=== PATIENT | male | born 1975 | race Caucasian/White ===

== ENCOUNTER 2022-03-17 11:26 | Inpatient (IN) | payer OTHER ==
[~2022-03-17] VITALS: Ht 175.3 cm; Wt 61.2 kg
[2022-03-17 11:32] VITALS: BP 98/72
--- NOTE | 2022-03-17 11:47 | NUR ---
glucose too high to be read on glucometer at this time, made aware
--- NOTE | 2022-03-17 12:24 | NUR ---
Patient noted to have existing wounds upon arrival to ER. Photos taken of wound and placed in chart. Wound covered with dressing. Physician informed.
[2022-03-17] MEDS ORDERED: NACL 0.9% 1,000 ML IV ONE ×2 (12:30→13:50)
--- NOTE | 2022-03-17 13:00 | NUR ---
46YO MALE PT BIB MOM DUE TO FOOT DISCOMFORT. PT STATES FAMILY ADVICED HIM TO BE SEEN DUE TO WOUND IN R FOOT. PRESENTS WITH TUNNELING WOUND AT HEEL AND OUTER PART OF FOOT. PT STATES WOUND INITIALLY STARTED 2 YEARS AGO DUE TO SURGEY ON PINKY TOE AND HAS INCREASED IN SIZE SINCE . PT DENIES TREATMENT AND SELF CLEANS USING ANTIBIOTIC SOAP AT HOME. PT LEFT FOOT AMPUTATED BELOW KNEE AND STATES AMBULATING USING WHEELCHAIR. PT DENIES PAIN AT SITE. DENIES N/V/D OR CHEST PAIN AT THIS TIME. PT AAOX4, RESPIRATIONS EVEN AND UNLABORED. HX: DIABETES NKA MEDS:DENIES
[2022-03-17 13:09] LABS: HEMATOCRIT 32.7 % (36-52); HEMOGLOBIN 10.9 g/dL (12.0-18.0); MEAN CORPUSCULAR HEMOGLOBIN 27 pg (27-31); MEAN CORPUSCULAR HGB CONC 33 g/dL (33-37); MEAN CORPUSCULAR VOLUME 81.2 fL (80-94); PLATELET COUNT (AUTO) 372 K/uL (140-450); RED BLOOD CELL COUNT(AUTO) 4.03 MIL/uL (4.20-6.10); RED CELL DISTRIBUTION WIDTH 14.7 % (11.6-13.7)
[2022-03-17 13:16] LABS: PROTHROMBIN TIME 11.3 secs (10.8-13.4)
[2022-03-17] MEDS ORDERED: PIPERACILLIN/TAZOBACTAM 3.375 GM in DEXTROSE 5% 50 ML IV ONE (13:50)
[2022-03-17] MEDS ORDERED: VANCOMYCIN 1,000 MG in DEXTROSE 5% 250 ML IV ONE (13:50)
[2022-03-17 13:53] LABS: ALBUMIN 1.6 g/dL (3.4-5.0); ANION GAP 14.8 (8-16); ASPARTATE AMINOTRANSFERASE 11 U/L (15-37); CARBON DIOXIDE 27.4 mmol/L (21-32); CHLORIDE 84 mmol/L (98-107); CREATININE 1.4 mg/dL (0.6-1.3); GFR ARICAN-AMERICAN 71 mL/min (>90); SODIUM SERUM 120 mmol/L (136-145); TOTAL BILIRUBIN 0.3 mg/dL (0.0-1.0); UREA NITROGEN, BLOOD 23 mg/dL (7-18)
[2022-03-17 13:54] LABS: POTASSIUM 6.2 mmol/L (3.5-5.1)
[2022-03-17 13:55] LABS: GLUCOSE 564 mg/dL (74-106)
[2022-03-17] MEDS ORDERED: CALCIUM GLUC 1 GM/50 mL NS BAG 50 ML IV ONE (14:00)
[2022-03-17] MEDS ORDERED: FUROSEMIDE 40 MG/4 ML VIAL IVP ONE (14:00)
[2022-03-17] MEDS ORDERED: INSULIN REGULAR, HUMAN 100 UNIT/ML VIAL IV ONE (14:05)
[2022-03-17 14:33] LABS: LYMPHOCYTES % (MANUAL) 2 % (20-46); MONOCYTES % (MANUAL) 4 % (5-12)
[2022-03-17] MEDS ORDERED: PIPERACILLIN/TAZOBACTAM 3.375 GM VIAL IV ONE (14:37)
[2022-03-17] MEDS ORDERED: VANCOMYCIN 1,000 MG VIAL ONE (14:37)
[2022-03-17 14:58] LABS: APPEARANCE,URINE CLEAR (CLEAR); BILIRUBIN,URINE NEGATIVE (NEGATIVE); BLOOD, URINE 1+ (NEGATIVE); COLOR,URINE YELLOW (YELLOW); LEUKOCYTE ESTERASE ,URINE NEGATIVE (NEGATIVE); NITRITE, URINE NEGATIVE (NEGATIVE); UGLUCOSE 3+ (NEGATIVE)
[2022-03-17 15:19] LABS: RBC,URINE 0-5 /HPF (0-5); WBC,URINE 0-5 /HPF (0-5); YEAST,URINE Rare /HPF (None Seen)
--- NOTE | 2022-03-17 15:44 | NUR ---
PT AT REST AND SLEEPING Addendum: 03/17/22 at 1544 by PHSEP NO VISIBLE DISTRESS. RESPIRATIONS EVEN AND UNLABORED
--- NOTE | 2022-03-17 16:35 | NUR ---
ATTEMPT TO CALL DR FUNEZ FOR PT UPDATE. LEFT MESSAGE W/ OPTHALMIC TECH
--- NOTE | 2022-03-17 17:30 | NUR ---
MD FUNEZ UPDATED AND MADE AWARE PT STATUS. TO CHANGE ORDERS
[2022-03-17] MEDS ORDERED: HYDROcodone/APAP 5/325 MG 1 TAB TAB PO PRN (18:00)
[2022-03-17] MEDS ORDERED: POTASSIUM CHLORIDE 10 MEQ TABER PO PRN (18:00)
[2022-03-17] MEDS ORDERED: KCL 20 MEQ/WATER INJ PREMIX 200 ML IV PRN (18:00)
[2022-03-17] MEDS ORDERED: ONDANSETRON 4 MG/2 ML VIAL IVP PRN (18:00)
[2022-03-17] MEDS ORDERED: MAG SULF 2000 MG/WATER PREMIX 50 ML IV PRN (18:00)
[2022-03-17] MEDS ORDERED: ACETAMINOPHEN 325 MG TAB PO PRN (18:00)
[2022-03-17] MEDS ORDERED: INSULIN LISPRO 100 UNITS/ML VIAL SUBQ SCH (18:14)
--- NOTE | 2022-03-17 19:28 | NUR ---
REPORT GIVEN TO VILMA DUNBAR. ALL QUESTIONS ANSWERED . TRANSFER OF CARE AT THIS TIME
--- NOTE | 2022-03-17 19:34 | NUR ---
PATIENT RESTING IN BED. DOESNT APPEAR TO BE IN DISTRESS. RR APPEAR TO BE EVEN AND UNLABORED. ALL NEEDS MET
[2022-03-17] MEDS: NACL 0.9% 1,000 ML IV SCH (19:40)
--- NOTE | 2022-03-17 22:14 | NUR ---
PATIETN BANDAGES CAME OFF. PUT ON NEW NON ADHESIVE DRESSING . ELEVATED LEG UP ON PILLOW FOR COMFORT. ALL NEEDS MET
--- NOTE | 2022-03-17 22:44 | NUR ---
WOUND CULTURE COLLECTED AND HANDED TO LAB
--- NOTE | 2022-03-17 23:40 | NUR ---
PATIENT STATED THAT HE IS FEEING REALLY ANXIOUS TO GET ADMITTED. PATIENT IS CURRENTLY TACHYCARDIC 115-130. ATIVAN GIVEN ORDERED FOR ANXIETY.
[2022-03-17] MEDS: LORazepam 1 MG TAB PO PRN (23:42)
--- NOTE | 2022-03-18 00:30 | NUR ---
SPOKE TO JEANNE [phone], STATED THAT SHE WOULD PAGE MD RAFA THE DONOR RELATIONS OFFICER MD, HE WOULD CALL BACK REGARDING PATIENT.
--- NOTE | 2022-03-18 00:40 | NUR ---
SPOKE TO MD CRAIG REGARDING PATIENT BEING TACHYCARDIC 120-140. STATED TO GIVE A 500ML/HR BOLUS THEN REASSESS. IF IN AN HOUR PATIENT CONT. TO BE TACHYCARDIC IN THE 120-130S THEN TO CALL BACK AND UPDATE TO RE-EVALUATE TX. ORDERS CARRIED OUT
--- NOTE | 2022-03-18 01:50 | NUR ---
PATIENT RESTING IN BED. HEART RATE <120, PER MD CRAIG. NO NEW ORDERS IF HR IS MAINTAINED UNDER 120. ONLY TO CALL IF 120-130 OR ABOVE. DOESNT APPEAR TO BE IN DISTRESS. RR APPEAR TO BE EVEN AND UNLABORED. BED LOW AND LOCKED. ALL NEEDS MET.
--- NOTE | 2022-03-18 04:00 | NUR ---
PATIETN RESTING IN BED. RR EVEN AND UNLABORED. PATIENT STATED THAT HE IS BEGGING TO FEEL ANXIOUS AGAIN. WILL LET ME KNOW WHEN HE FEELS LIKE HE NEEDS ATIVAN. ALL NEED MET.
--- NOTE | 2022-03-18 07:05 | NUR ---
PATIENT SITTING IN BED. BED LOW AND LOCKED. ALL NEEDS MET.
--- NOTE | 2022-03-18 07:30 | NUR ---
REPORT GIVEN TO KIMMY DUMONT. TRANSFER OF CARE
--- NOTE | 2022-03-18 07:36 | NUR ---
PATIENT BS TAKEN 259. CAPRI REPORTED THAT HE WANTED HIS MEDICATION PRIOR TO RECEIVING BREAKFAST. MORNING NURSE MADE AWARE
[2022-03-18 07:42] LABS: BASOPHILS # (AUTO) 0.1 K/uL (0.00-0.22); BASOPHILS % (AUTO) 0.7 % (0.0-2.0); EOSINOPHILS % (AUTO) 0.3 % (0.0-4.0); HEMATOCRIT 28.5 % (36-52); HEMOGLOBIN 9.6 g/dL (12.0-18.0); LYMPHOCYTES # (AUTO) 1.7 K/uL (2.0-11.5); LYMPHOCYTES % (AUTO) 13.6 % (20.5-51.1); MEAN CORPUSCULAR HEMOGLOBIN 27 pg (27-31); MEAN CORPUSCULAR HGB CONC 34 g/dL (33-37); MEAN CORPUSCULAR VOLUME 79.2 fL (80-94); MONOCYTES # (AUTO) 1.6 K/uL (0.8-1.0); MONOCYTES % (AUTO) 12.8 % (1.7-9.3); NEUTROPHILS # (AUTO) 9.1 K/uL (1.8-7.7); NEUTROPHILS % (AUTO) 72.6 % (42.2-75.2); PLATELET COUNT (AUTO) 320 K/uL (140-450); RED CELL DISTRIBUTION WIDTH 14.8 % (11.6-13.7); WHITE BLOOD COUNT (AUTO) 12.5 K/uL (4.8-10.8)
[2022-03-18 07:49] LABS: ANION GAP 9.3 (8-16); CARBON DIOXIDE 26.6 mmol/L (21-32); CREATININE 0.8 mg/dL (0.6-1.3); POTASSIUM 3.9 mmol/L (3.5-5.1)
[2022-03-18] MEDS: NACL 0.9% 1,000 ML IV SCH ×2 (08:14→19:05)
--- NOTE | 2022-03-18 08:21 | NUR ---
pt calm and resting. provided with meal. tolerated well. vss. iv line patent and intact
[2022-03-18] MEDS: DOCUSATE SODIUM 100 MG GELCAP PO SCH (08:28)
[2022-03-18] MEDS ORDERED: VANCOMYCIN PER PHARMACY MC PRN (09:25)
--- NOTE | 2022-03-18 09:38 | NUR ---
Patient will be admitted to care of dr song. Admited to tele. Will go to [email or web address]. Belongings list completed. Report to rosa maria coy.
[2022-03-18] MEDS: VANCOMYCIN 750 MG in NACL 0.9% 250 ML IV SCH ×2 (10:00→22:01)
[2022-03-18] MEDS: INSULIN LISPRO SLIDING SCALE 100 UNITS/ML VIAL SUBQ PRN ×3 (12:00→20:20)
--- NOTE | 2022-03-18 12:39 | NUR ---
DC PLANNIN YRS OLD MALE PATIENT WAS ADMITTED FROM HOME WITH A DX OF SEPSIS AND RIGHT FOOT OSTEOMYELITIS. PATIENT HAS A HX OF DM, S/P RIGHT FIFTH TOE AMPUTATION AND LEFT BKA. XRAY OF FIGHT FOOT SHOWED ADVANCED OSTEOMYELITIS. CXR AND RAPID COVID TEST NEGATIVE. BLOOD,URINE AND WOUND CULTURE PENDING. WBC ON ADMISSION 17.2 ADMINISTERED VANCOMYCIN AND ZOSYN IV ABX WBC 12.5 CONSULTED WITH SURGEON, ID AND NEPHRO. DC PLAN PER MD'S RECOMMENDATIONS. CM TO FOLLOW Addendum: 03/23/22 at 1518 by Temitope Funes RN DC PLANNING: PATIENT HAS RIGHT BKA ON 03/[address] MCDONALD. CONTINUED IV ABX AMPICILLIN AND IVF , PAIN MEDS WITH MORPHINE IV. DC PLAN TO GO TO SNF FOR PHYSICAL THERAPY. FAXED TO [facility], [facility] AND [facility]ARA [facility]LO[facility]. CM TO FOLLOW Addendum: 03/23/22 at 1526 by Temitope Funes RN DC PLANNING: RECEIVED A CALL FROM [facility] AND [facility] STATED UNABLE TO TAKE PATIENT. NO BED AVAILABLE. AWAITING FOR DAI KILPATRICKJoaquín AND LARA ARREOLA. CM TO FOLLOW Addendum: 03/23/22 at 1613 by Temitope Funes RN DC PLANNING: [facility] ACCEPTED PATIENT.RECEIVED AUTH FRO [facility] CM BERNARDINO GREGORIO FOR [facility] [id number] FOR TRANSPORT [id number] PATIENT CAN GO TO ROOM 223B. AWAITING FOR DC ORDER. CM TO FOLLOW Addendum: 03/24/22 at 1533 by Temitope Funes RN DC PLANNING: PER KALA LEAD ACCOUNTANT PT REQUESTED TO GO HOME AND DC HOME. CALLED PT'S HOUSE [phone] LEFT A MESSAGE. NOTIFIED [facility] REQUEST SENT TO [facility]. CM TO FOLLOW
[2022-03-18] MEDS: PIPERACILLIN/TAZOBACTAM 3.375 GM in DEXTROSE 5% 50 ML IV SCH ×2 (12:49→12:58)
[2022-03-18 13:00] VITALS: BP 157/97
--- NOTE | 2022-03-18 15:35 | NUR ---
PATIENT HAS BEEN SCREENED AND CATEGORIZED HIGH NUTRITION RISK. PATIENT WILL BE SEEN WITHIN 1-2 DAYS OF ADMISSION. / CONSULT AND REFERRAL RECEIVED FOR UNHEALED WOUNDS ANA MARÍA MEI RD
[2022-03-18 16:00] VITALS: BP 152/85
--- NOTE | 2022-03-18 19:30 | NUR ---
RECEIVED BEDSIDE REPORT FROM DAY RN. PT OBSERVED RESTING IN BED WITH EYES CLOSED. RESPIRATIONS ARE EQUAL AND UNLABORED ON ROOM AIR. SKIN IS WARM DRY. L BKA. R FOOT OSTEO FOOT IS WRAPPED DRESSING IS C/D/I. CAP REFILL >3. PT ABLE TO WIGGLE TOES. IV ON RAC 18G INFUSING NS AT 80ML/H. CALL LIGHT IS WITHIN REACH. WILL CONTINUE TO MONITOR.
[2022-03-18 20:00] VITALS: BP 133/87
--- NOTE | 2022-03-18 20:19 | NUR ---
DIDI MEDICATIONS GIVEN PER ORDERS. PHONE GIVEN PER REQUEST. BS 210 INSULIN GIVEN ACCORDING TO SLIDING SCALE. ALL NEEDS MET.
[2022-03-18] MEDS: LORazepam 1 MG TAB PO PRN (22:00)
--- NOTE | 2022-03-18 22:05 | NUR ---
PRN ATIVAN GIVEN FOR C/C ANXIETY. VANCO NOW INFUSING PER ORDERS. WILL CONTINUE TO MONITOR.
[2022-03-18] MEDS ORDERED: DEXTROSE 50% 50 ML SYR IVP PRN (23:40)
[2022-03-19] MEDS: PIPERACILLIN/TAZOBACTAM 3.375 GM in DEXTROSE 5% 50 ML IV SCH ×5 (00:03→23:05)
--- NOTE | 2022-03-19 00:08 | NUR ---
ROUNDS MADE. PT APPEARS TO BE ASLEEP WITH EYES CLOSED. CHEST RISE AND FALL NOTED. WILL CONTINUE TO MONITOR.
--- NOTE | 2022-03-19 02:02 | NUR ---
ROUNDS MADE. PT APPEARS TO BE ASLEEP WITH EYES CLOSED. CHEST RISE AND FALL NOTED. WILL CONTINUE TO MONITOR.
[2022-03-19 04:00] VITALS: BP 130/80
--- NOTE | 2022-03-19 04:00 | NUR ---
VITAL SIGNS ARE STABLE. ALL NEEDS MET.
[2022-03-19 05:58] LABS: BASOPHILS # (AUTO) 0.1 K/uL (0.00-0.22); BASOPHILS % (AUTO) 0.8 % (0.0-2.0); EOSINOPHILS # (AUTO) 0.2 K/uL (0-0.4); HEMATOCRIT 28.2 % (36-52); HEMOGLOBIN 9.5 g/dL (12.0-18.0); LYMPHOCYTES # (AUTO) 2.4 K/uL (2.0-11.5); LYMPHOCYTES % (AUTO) 21.6 % (20.5-51.1); MEAN CORPUSCULAR HEMOGLOBIN 27 pg (27-31); MEAN CORPUSCULAR HGB CONC 34 g/dL (33-37); MEAN CORPUSCULAR VOLUME 80.1 fL (80-94); MONOCYTES # (AUTO) 1.3 K/uL (0.8-1.0); MONOCYTES % (AUTO) 11.9 % (1.7-9.3); NEUTROPHILS % (AUTO) 63.7 % (42.2-75.2); PLATELET COUNT (AUTO) 358 K/uL (140-450); RED BLOOD CELL COUNT(AUTO) 3.52 MIL/uL (4.20-6.10); RED CELL DISTRIBUTION WIDTH 14.7 % (11.6-13.7)
[2022-03-19 06:35] LABS: ANION GAP 9.4 (8-16); CARBON DIOXIDE 29.8 mmol/L (21-32); CREATININE 0.9 mg/dL (0.6-1.3); POTASSIUM 4.2 mmol/L (3.5-5.1)
[2022-03-19] MEDS: BLOOD GLUCOSE MONITORING 1 DEV DEV FS SCH ×4 (06:49→20:28)
[2022-03-19] MEDS: NACL 0.9% 1,000 ML IV SCH ×2 (06:49→20:36)
[2022-03-19] MEDS: MAGNESIUM OXIDE 400 MG TAB PO PRN (06:50)
--- NOTE | 2022-03-19 06:50 | NUR ---
BS 388 PT ATE BURGER LAST NIGHT DESPITE ADVISED NOT TOO. PT NPO AFTER MIDNIGHT POSSIBLE SX TODAY. SX IS NOT YET DIDI. WILL HOLD COVERAGE. PRN MG OX 400MG GIVEN MG LVL 1.7 THIS MORNING.
--- NOTE | 2022-03-19 07:30 | NUR ---
BEDSIDE REPORT GIVEN TO DAY RN. PT IN STABLE CONDITION.
[2022-03-19 08:00] VITALS: BP 156/99
[2022-03-19] MEDS ORDERED: VANCOMYCIN 1,000 MG in DEXTROSE 5% 250 ML IV SCH (10:00)
[2022-03-19] MEDS: DOCUSATE SODIUM 100 MG GELCAP PO SCH (10:06)
[2022-03-19] MEDS: INSULIN LISPRO SLIDING SCALE 100 UNITS/ML VIAL SUBQ PRN ×3 (13:11→20:30)
--- NOTE | 2022-03-19 15:20 | NUR ---
03/19/22 RD INITIAL ASSESSMENT COMPLETED PLEASE REFER TO NUTRITION ASSESSMENT UNDER CARE ACTIVITY FOR ESTIMATED NUTRITIONAL NEEDS. 1. RECOMMEND CCHO 60GM DIET AFTER SURGERY -RECOMMEND GLUCERNA BID FOR NUTRITION SUPPORT 2. MONITOR BLOOD GLUCOSE LEVELS 3. RD TO FOLLOW-UP 3-5 DAYS, MODERATE RISK ANA MARÍA MEI, DANISH
[2022-03-19 16:00] VITALS: BP 159/99
[2022-03-19] MEDS: VANCOMYCIN 1,000 MG in DEXTROSE 5% 250 ML IV SCH (17:46)
--- NOTE | 2022-03-19 20:00 | NUR ---
RECEIVED REPORT FROM AM RN. PATIENT IS AWAKE,ALERT AND ORIENTED X4. DENIES PAIN, DENIES SHORTNESS OF BREATH. LEFT BKA, RIGHT FOOT WOUND NOTED WITH CLEAN DRY AND INTACT DRESSING. SKIN WARM AND DRY TO TOUCH. IVF OF NS AT 80 ML/HR INFUSING WELL IN THE RIGHT AC, NO REDNESS NOR SWELLING NOTED. BED IN THE LOWEST AND LOCKED POSITION FOR SAFETY, CALL LIGHT WITHIN REACH, INSTRUCTED TO CALL IF ASSISTANCE IS NEEDED, PT VERBALLY AGREED.
--- NOTE | 2022-03-19 20:17 | NUR ---
ENDORSEMENT PATIENT TO PM SHIFT NURSE WHILE PATIENT RET IN BEDLandon PROCEDURE CONSENT SIGNED, PIV RAC INFUSING NS AT 80ML/HR
[2022-03-19] MEDS: INSULIN LANTUS 100 UNITS/ML 10 ML VIAL SUBQ SCH (20:32)
--- NOTE | 2022-03-19 20:32 | NUR ---
BLOOD SUGAR 330 MG/DL, INSULIN GIVEN PER SLIDING SALE COVERAGE ORDERED AND LANTUS ORDERED. PROVIDED HS SNACKS.
[2022-03-20] VITALS: BP 154/89
--- NOTE | 2022-03-20 | NUR ---
PATIENT NOW NOTHING BY MOUTH FOR CT ANGIO OF THE RIGHT LOWER EXTREMITY IN AM. PATIENT SIGNED CONSENT.
--- NOTE | 2022-03-20 00:27 | NUR ---
PATIENT ASLEEP. NO S/SX OF PAIN. CALL LIGHT WITHIN REACH.
[2022-03-20] MEDS: VANCOMYCIN 1,000 MG in DEXTROSE 5% 250 ML IV SCH (01:01)
[2022-03-20] MEDS: PIPERACILLIN/TAZOBACTAM 3.375 GM in DEXTROSE 5% 50 ML IV SCH ×4 (05:04→23:54)
--- NOTE | 2022-03-20 06:11 | NUR ---
PATIENT WAS ABLE TO SLEEP DURING THE SHIFT. ALL NEEDS ATTENDED TO. NO ACUTE DISTRESS NOTED. SAFETY PRECAUTIONS MAINTAINED DURING THE SHIFT, CALL LIGHT REMAINED WITHIN REACH. WILL ENDORSE PLAN OF CARE TO AM RN.
[2022-03-20 06:27] LABS: MAGNESIUM 1.6 mg/dL (1.8-2.4); PHOSPHORUS 3.6 mg/dL (2.5-4.9)
[2022-03-20 06:30] LABS: ANION GAP 7.4 (8-16); CARBON DIOXIDE 31.6 mmol/L (21-32)
[2022-03-20] MEDS: BLOOD GLUCOSE MONITORING 1 DEV DEV FS SCH ×4 (06:40→21:24)
[2022-03-20] MEDS: INSULIN LISPRO SLIDING SCALE 100 UNITS/ML VIAL SUBQ PRN ×3 (06:41→21:25)
[2022-03-20 06:49] LABS: BASOPHILS # (AUTO) 0.1 K/uL (0.00-0.22); EOSINOPHILS # (AUTO) 0.3 K/uL (0-0.4); EOSINOPHILS % (AUTO) 2.7 % (0.0-4.0); HEMATOCRIT 26.5 % (36-52); HEMOGLOBIN 9.1 g/dL (12.0-18.0); LYMPHOCYTES # (AUTO) 2.5 K/uL (2.0-11.5); LYMPHOCYTES % (AUTO) 23.3 % (20.5-51.1); MEAN CORPUSCULAR HEMOGLOBIN 28 pg (27-31); MEAN CORPUSCULAR HGB CONC 34 g/dL (33-37); MEAN CORPUSCULAR VOLUME 80.7 fL (80-94); MONOCYTES # (AUTO) 1.3 K/uL (0.8-1.0); NEUTROPHILS # (AUTO) 6.5 K/uL (1.8-7.7); PLATELET COUNT (AUTO) 409 K/uL (140-450); RED BLOOD CELL COUNT(AUTO) 3.28 MIL/uL (4.20-6.10); RED CELL DISTRIBUTION WIDTH 14.6 % (11.6-13.7); WHITE BLOOD COUNT (AUTO) 10.7 K/uL (4.8-10.8)
--- NOTE | 2022-03-20 07:30 | NUR ---
RECEIVED REPORT FROM NIGHTSHIFT NURSE PAUL FOR CONTINUITY OF CARE. PLAN OF CARE DISCUSSED. PT IN STABLE CONDITION, CURRENTLY SLEEPING EASILY AROUSED. A/OX4, BREATHING IS EVEN, REGULAR, AND UNLABORED ON ROOM AIR. PT IS CONTINENT OF THE BOWEL AND BLADDER, AND HAS DIFFICULTY AMBULATING DUE TO INFECTION ON RIGHT FOOT AND HX OF LEFT FOOT BELOW THE KNEE AMPUTATION. PT DENIES PAIN AT THIS TIME. DRESSING ON RIGHT FOOT INTACT, WITH MODERATE DRAINAGE VISIBLE, BUT NOT SATURATING DRESSING.
[2022-03-20 08:00] VITALS: BP 167/98
--- NOTE | 2022-03-20 08:05 | NUR ---
WOUND CONSULT NOT DONE TO RIGHT FOOT GANGRENOUS. PT. SEEN AND TREATED BY IN HOUSE PODIATRY TEAM, PENDING ORTHO CONSULT POSSIBLE BKA.
[2022-03-20] MEDS: DOCUSATE SODIUM 100 MG GELCAP PO SCH (09:06)
[2022-03-20] MEDS: NACL 0.9% 1,000 ML IV SCH (09:08)
[2022-03-20] MEDS: VANCOMYCIN 750 MG in DEXTROSE 5% 250 ML IV SCH ×2 (10:44→18:00)
[2022-03-20] MEDS ORDERED: MAG SULF 2000 MG/WATER PREMIX 50 ML IV SCH (14:00)
[2022-03-20] MEDS ORDERED: CLONIDINE HYDROCHLORIDE 0.1 MG TAB PO PRN (14:10)
[2022-03-20] MEDS: amLODIPine 5 MG TAB PO SCH (14:16)
[2022-03-20 16:00] VITALS: BP 147/89
--- NOTE | 2022-03-20 17:00 | NUR ---
PATIENT IS A 46 YEAR OLD MALE ADMITTED IN THE [facility]/ED ON 03/17/2022. DUE PRESENTING TO THE ED WITH A PROGRESSIVELY WORSENING SWELLING, PUS DRAINAGE, FOUL- SMELLING ODOR TO HIS RIGHT FOOT OVER THE LAST 2 MONTHS. PATIENT HAS MEDICAL HX. OF DIABETES AND HAS NOT CARE FOR HIM SELF OR TAKEN ANY OF HIS MEDICATIONS FOR ABOUT 2 YEARS. SW MET WITH PATIENT AT BEDSIDE TO DISCUSS HAND GATHER HIS COLLATERAL INFORMATION PATIENT WAS AWAKE AND ALERT DURING THE VISIT AND WAS ABLE TO PROVIDE HIS OWN INFORMATION. ACCORDING TO PATIENT HE LIVES AT HOME WITH HIS MOTHER AND STEPSON IN [place]. PATIENT REPORTED THAT HE HAS NO ID. AND HAS NOT BEEN ABLE TO GO AND GET ONE FROM THE [facility] THEREFORE; HIS CURRENT HEALTH PROVIDER WILL NOT TAKE HIM FOR HIS FOLLOW UP APPOINMENT THAT HE HAD SCHEDULED ABOUT 4-5 MONTHS AGO WITH MARY FREDERICK. PATIENT STATE THAT HE WILL BE GETTING HIS ID SOON AND THAT SHOULD NOT BE AN ISSUE. HOWEVER SW PROVIDED PATIENT WITH RESOURCES AND INFORMATION ABOUT HOW HE CAN GET HIS ID VIA ONLINE OR EVEN MAKE AN APPOINMENT. TO [employer]. PATIENT AGREED TO FOLLOW UP. PATIENT REPORTED THAT HIS MOTHER IS HIS EMERGENCY CONTACT AND HAS LIMITED FAMILY SUPPORT. PATIENT DO NOT HAVE A.D. AND DID NOT WANT INF. FORMS PROVIDED BY [employer]. PER PATIENT HE HAS NO MEDICATIONS BECAUSE HE WAS UNABLE TO SEE A DOCTOR THAT CAN PRESCRIBED HIS MEDS BUT HE CAN TOOL DESIGN DRAFTSPERSON HIS MEDICATIONS AT THE [facility] IN [place] BY HIS HOME. PATIENT REPORTED HAVING ONLY A WHEELCHAIR HIS DME. PER PATIENT HE WILL BE TOOL DESIGN DRAFTSPERSON BY HIS STEP-SON WHEN HE IS READY FOR DC FROM [facility]. NATHALY DISCUSS WITH PATIENT THE IMPORTANCE OF MAKING AN APPOINTMENT WITH IN 5-7 DAYS AFTER HIS DC AND AGREED FOR THESE IMMIGRATION CASE WORKER TO MAKE HIS APPOINMENT WITH HIS PCP MARY FREDERICK. SW WILL FOLLOW UP NEEDED.
[2022-03-20] MEDS: INSULIN LANTUS 100 UNITS/ML 10 ML VIAL SUBQ SCH (18:01)
--- NOTE | 2022-03-20 19:39 | NUR ---
ENDORSED PT TO NIGHTSHIFT NURSE PAUL FOR CONTINUITY OF CARE. PT IN STABLE CONDITION.
--- NOTE | 2022-03-20 19:40 | NUR ---
RECEIVED REPORT FROM DAY SHIFT NURSE. PATIENT IS RESTING COMFORTABLY IN BED. ON ROOM AIR. NO ACUTE DISTRESS NOTED. BREATHING NORMAL NON LABORED. BED IN LOW POSITION, WHEELS LOCKED. IV WAS PULLED OUT. NO COMPLAINTS OF PAIN AT THIS TIME. CALL LIGHT WITHIN REACH. WILL CONTINUE TO MONITOR.
--- NOTE | 2022-03-20 21:02 | NUR ---
SCHEDULED MEDICATION GIVEN PER MD ORDER.
--- NOTE | 2022-03-20 21:28 | NUR ---
PATIENT BLOOD SUGAR WAS 516. NOTIFIED DR. FUNEZ AND MADE AWARE THAT I GAVE HIM 10 UNITS PER SLIDING SCALE. DR. FUNEZ ORDERED HUMALOG 20 UNITS ONE TIME AND TO CHECK BLOOD SUGAR AGAIN AT 0300. ORDERS NOTED AND CARRIED OUT.
--- NOTE | 2022-03-20 21:30 | NUR ---
STARTED A NEW PERIPHERAL IV ON THE RIGHT WRIST 22 GAUGE WITH GOOD BACK FLOW OF BLOOD, TOLERATED WELL.
[2022-03-20] MEDS ORDERED: INSULIN LISPRO 100 UNITS/ML VIAL SUBQ SCH (21:40)
[2022-03-21] VITALS: BP 133/86
[2022-03-21] MEDS: VANCOMYCIN 750 MG in DEXTROSE 5% 250 ML IV SCH (01:12)
--- NOTE | 2022-03-21 02:58 | NUR ---
BLOOD SUGAR RECHECKED WAS 381, DR FUNEZ MADE AWARE.
[2022-03-21] MEDS: BLOOD GLUCOSE MONITORING 1 DEV DEV FS SCH ×4 (03:00→20:51)
--- NOTE | 2022-03-21 03:00 | NUR ---
BLOOD SUGAR WAS 381 10 UNITS HUMALOG INSULIN GIVEN PER SLIDING SCALE ORDERED BY DR. FUNEZ.
[2022-03-21] MEDS: INSULIN LISPRO SLIDING SCALE 100 UNITS/ML VIAL SUBQ PRN ×5 (03:35→20:54)
[2022-03-21] MEDS: PIPERACILLIN/TAZOBACTAM 3.375 GM in DEXTROSE 5% 50 ML IV SCH ×3 (05:31→18:05)
--- NOTE | 2022-03-21 06:00 | NUR ---
BLOOD SUGAR WAS 428, HUMALOG 10 UNITS GIVEN PER SLIDING SCALE. CALLED DR. KUHN BILLING REPRESENTATIVE DR. EVANGELINA FUNEZ AT 0620. AWAITING FOR REPLY.
[2022-03-21] MEDS ORDERED: INSULIN LISPRO 100 UNITS/ML VIAL SUBQ SCH (06:45)
--- NOTE | 2022-03-21 06:45 | NUR ---
RECEIVED A CALL BACK FROM DR. KUHN WITH ORDER NOTED AND CARRIED OUT. PATIENT SLEEPING, NO SOB NOTED. BREATHING NORMAL UNLABORED. CALL LIGHT WITHIN REACH.
--- NOTE | 2022-03-21 07:25 | NUR ---
ENDORSED TO DAY SHIFT NURSE FOR CONTINUITY OF CARE. PT SLEEPING IN NO ACUTE DISTRESS.
[2022-03-21 08:00] VITALS: BP_SYST 128; BP_SYST 159; BP_DIAS 73; BP_DIAS 96
[2022-03-21] MEDS: amLODIPine 5 MG TAB PO SCH (08:46)
[2022-03-21] MEDS: DOCUSATE SODIUM 100 MG GELCAP PO SCH (08:46)
--- NOTE | 2022-03-21 09:00 | NUR ---
PT IN STABLE CONDITION. DENIES PAIN AT THIS TIME.
[2022-03-21 09:01] LABS: BASOPHILS # (AUTO) 0.2 K/uL (0.00-0.22); BASOPHILS % (AUTO) 1.4 % (0.0-2.0); EOSINOPHILS # (AUTO) 0.2 K/uL (0-0.4); EOSINOPHILS % (AUTO) 2.1 % (0.0-4.0); HEMATOCRIT 29.2 % (36-52); HEMOGLOBIN 9.8 g/dL (12.0-18.0); LYMPHOCYTES # (AUTO) 2.8 K/uL (2.0-11.5); LYMPHOCYTES % (AUTO) 23.7 % (20.5-51.1); MEAN CORPUSCULAR HEMOGLOBIN 27 pg (27-31); MEAN CORPUSCULAR HGB CONC 33 g/dL (33-37); MEAN CORPUSCULAR VOLUME 80.1 fL (80-94); MONOCYTES # (AUTO) 1.3 K/uL (0.8-1.0); MONOCYTES % (AUTO) 10.7 % (1.7-9.3); NEUTROPHILS # (AUTO) 7.3 K/uL (1.8-7.7); NEUTROPHILS % (AUTO) 62.1 % (42.2-75.2); PLATELET COUNT (AUTO) 531 K/uL (140-450); RED BLOOD CELL COUNT(AUTO) 3.65 MIL/uL (4.20-6.10); RED CELL DISTRIBUTION WIDTH 14.5 % (11.6-13.7); WHITE BLOOD COUNT (AUTO) 11.7 K/uL (4.8-10.8)
[2022-03-21 09:19] LABS: ANION GAP 9.6 (8-16); CARBON DIOXIDE 29.3 mmol/L (21-32); CREATININE 0.9 mg/dL (0.6-1.3); POTASSIUM 3.9 mmol/L (3.5-5.1)
[2022-03-21 09:29] LABS: MAGNESIUM 1.8 mg/dL (1.8-2.4); PHOSPHORUS 2.5 mg/dL (2.5-4.9)
--- NOTE | 2022-03-21 11:00 | NUR ---
PT IN STABLE CONDITION. DENIES PAIN AT THIS TIME.
--- NOTE | 2022-03-21 13:00 | NUR ---
PT IN STABLE CONDITION. DENIES PAIN AT THIS TIME.
--- NOTE | 2022-03-21 15:00 | NUR ---
PT IN STABLE CONDITION. DENIES PAIN AT THIS TIME. PT WAS ABLE TO SIGN CONSENT FORM FOR SURGERY AND SEDATION.
[2022-03-21 16:00] VITALS: BP 150/88
[2022-03-21] MEDS: INSULIN LANTUS 100 UNITS/ML 10 ML VIAL SUBQ SCH (16:35)
--- NOTE | 2022-03-21 17:00 | NUR ---
PT IN STABLE CONDITION. DENIES PAIN AT THIS TIME.
[2022-03-21] MEDS: VANCOMYCIN 750 MG in NACL 0.9% 250 ML IV SCH (18:07)
--- NOTE | 2022-03-21 19:25 | NUR ---
ENDORSED PT TO NIGHTSHIFT NURSE SUNSHINE FOR CONTINUITY OF CARE. PT IN STABLE CONDITION.
--- NOTE | 2022-03-21 19:26 | NUR ---
RECEIVED PT FROM MORNING SHIFT NURSE. PT IS LYING ON THE BED. AOX4, ABLE TO VERBALIZE NEEDS AND ABLE TO FOLLOW COMMAND. PT IS ON ROOM AIR, RESPIRATION ARE EVEN AND UNLABORED, NO S/S OF DISTRESS NOTED. NO S/S OF PAIN OR DISCOMFORT NOTED. PT IS ON CCHO DIET BUT NPO AFTER MID NIGHT. PT HAS IV ON RIGHT WRIST GAUGE 22 WITH NS RUNNING AT 80 ML/ HR. PT HAS RIGHT FOOT WOUND AND LEFT BKA. PT HAS SURGERY TOMORROW FOR RIGHT BKA AT 12 NOON. ALL SAFETY MEASURES IMPLEMENTED. BED WHEELS LOCK AND CALL LIGHT WITHIN REACH.
--- NOTE | 2022-03-21 20:51 | NUR ---
ALL SCHEDULED MEDICATION WAS GIVEN PER MD ORDER. BLOOD GLUCOSE IS 350. 8 UNITS OF HUMALOG INSULIN WAS GIVEN. PT TOLERATE IT WELL. CALL LIGHT WITHIN REACH. ALL SAFETY MEASURES IMPLEMENTED.
--- NOTE | 2022-03-21 22:00 | NUR ---
PT WAS GIVEN CRACKERS PER PT REQUEST. ADVISE PT TO BE ON NPO BY MIDNIGHT. PT VERBALIZE UNDERSTANDING. CALL LIGHT WITHIN REACH. ALL SAFETY MEASURES IMPLEMENTED.
--- NOTE | 2022-03-22 | NUR ---
PT IS LYING ON THE BED AND ON SLEEP. RESPIRATION ARE EVEN AND UNLABORED. CHEST RISE AND FALL NOTED. CALL LIGHT WITHIN REACH. BED WHEEL LOCK. ALL SAFETY MEASURES IMPLEMENTED.
[2022-03-22] MEDS: PIPERACILLIN/TAZOBACTAM 3.375 GM in DEXTROSE 5% 50 ML IV SCH ×4 (00:08→17:37)
[2022-03-22] MEDS: VANCOMYCIN 750 MG in NACL 0.9% 250 ML IV SCH ×3 (02:08→18:33)
--- NOTE | 2022-03-22 02:08 | NUR ---
SCHEDULED MEDICATION WAS GIVEN PER MD ORDER. REITERATE TO THE PT THE HIS ON NPO ALREADY. PT TOLERATE IT WELL AND VERBALIZE UNDERSTANDING. CALL LIGHT WITHIN REACH. ALL SAFETY MEASURES IMPLEMENTED.
[2022-03-22 04:00] VITALS: BP 148/90
--- NOTE | 2022-03-22 05:30 | NUR ---
SCHEDULE MEDICATION WAS GIVEN TO PT PER MD ORDER. PT TOLERATE IT WELL. ALL SAFETY MEASURES IMPLEMENTED.
[2022-03-22 06:23] LABS: BASOPHILS # (AUTO) 0.2 K/uL (0.00-0.22); BASOPHILS % (AUTO) 1.1 % (0.0-2.0); EOSINOPHILS # (AUTO) 0.3 K/uL (0-0.4); EOSINOPHILS % (AUTO) 2.2 % (0.0-4.0); HEMATOCRIT 29.2 % (36-52); HEMOGLOBIN 9.6 g/dL (12.0-18.0); LYMPHOCYTES # (AUTO) 2.7 K/uL (2.0-11.5); LYMPHOCYTES % (AUTO) 20.2 % (20.5-51.1); MEAN CORPUSCULAR HEMOGLOBIN 27 pg (27-31); MEAN CORPUSCULAR HGB CONC 33 g/dL (33-37); MONOCYTES # (AUTO) 1.2 K/uL (0.8-1.0); MONOCYTES % (AUTO) 9.2 % (1.7-9.3); NEUTROPHILS # (AUTO) 8.9 K/uL (1.8-7.7); NEUTROPHILS % (AUTO) 67.3 % (42.2-75.2); PLATELET COUNT (AUTO) 600 K/uL (140-450); RED CELL DISTRIBUTION WIDTH 14.3 % (11.6-13.7); WHITE BLOOD COUNT (AUTO) 13.2 K/uL (4.8-10.8)
[2022-03-22 06:34] LABS: ANION GAP 7.6 (8-16); CARBON DIOXIDE 31.8 mmol/L (21-32); CREATININE 0.9 mg/dL (0.6-1.3); POTASSIUM 3.4 mmol/L (3.5-5.1)
[2022-03-22] MEDS: BLOOD GLUCOSE MONITORING 1 DEV DEV FS SCH ×4 (06:39→21:38)
--- NOTE | 2022-03-22 06:39 | NUR ---
PT BLOOD GLUCOSE IS 173. HUMALOG INSULIN 2 UNITS WAS GIVEN. PT TOLERATE IT WELL. CALL LIGHT WITHIN REACH. ALL SAFETY MEASURES IMPLEMENTED.
[2022-03-22] MEDS: INSULIN LISPRO SLIDING SCALE 100 UNITS/ML VIAL SUBQ PRN ×3 (06:41→21:39)
--- NOTE | 2022-03-22 07:15 | NUR ---
RECEIVED REPORT FROM NIGHTSHIFT NURSE SUNSHINE FOR CONTINUITY OF CARE. PLAN OF CARE DISCUSSED. PT IN STABLE CONDITION, CURRENTLY SLEEPING EASILY AROUSED. A/OX4, BREATHING IS EVEN, REGULAR, AND UNLABORED ON ROOM AIR. PT IS CONTINENT OF THE BOWEL AND BLADDER, AND HAS DIFFICULTY AMBULATING DUE TO INFECTION ON RIGHT FOOT AND HX OF LEFT FOOT BELOW THE KNEE AMPUTATION. PT DENIES PAIN AT THIS TIME. DRESSING ON RIGHT FOOT CLEAN, DRY AND INTACT.
--- NOTE | 2022-03-22 07:15 | NUR ---
PT IS STABLE. ENDORSED PT TO MORNING SHIFT NURSE FOR CONTINUITY OF CARE.
[2022-03-22 08:00] VITALS: BP 160/98
--- NOTE | 2022-03-22 08:21 | NUR ---
HEPARIN NOT GIVEN DUE TO UPCOMING SURGERY. RECEIVED CALL FROM DR. MCDONALD, PER MD HE WANTED TO MOVE UP THE PT'S SURGERY FROM 1200 TO 1030. ATTEMPTED TO CALL OR TEAM AND ANESTHESIOLOGIST. CALLED DIRECTOR HAILE AND LEFT MESSAGE. AWAITING CALLBACK.
[2022-03-22] MEDS: DOCUSATE SODIUM 100 MG GELCAP PO SCH (09:02)
[2022-03-22] MEDS: amLODIPine 5 MG TAB PO SCH (09:02)
--- NOTE | 2022-03-22 10:23 | NUR ---
ADMINISTERED 20MEQ OF 40MEQ PRN K-RIDER PER DR. MEI FOR POTASSIUM LEVEL OF 3.4. WILL CONTINUE WITH 2ND 20MEQ BAG K-RIDER AFTER PROCEDURE. PRN PO MAG OX GIVEN FOR MAGNESIUM LEVEL OF 1.7.
[2022-03-22] MEDS: MAGNESIUM OXIDE 400 MG TAB PO PRN (10:30)
--- NOTE | 2022-03-22 10:30 | NUR ---
PT WAS TAKEN TO OR VIA BED BY OR NURSE. PT IN STABLE CONDITION.
[2022-03-22] MEDS ORDERED: HETASTARCH 6% 0 ML IV ONE (10:44)
[2022-03-22] MEDS ORDERED: fentaNYL citrate 0.05 MG/ML VIAL ONE ×2 (10:49→11:00)
[2022-03-22] MEDS ORDERED: BUPIVACAINE-MPF 0.25% 30 ML VIAL INJ ONE (10:51)
[2022-03-22] MEDS ORDERED: ROCURONIUM 50 MG/5 ML VIAL IV ONE (11:00)
[2022-03-22] MEDS ORDERED: PHENYLEPHRINE 10 MG/ML VIAL ONE (11:00)
[2022-03-22] MEDS ORDERED: PROPOFOL 200 MG/20 ML VIAL IV ONE (11:00)
[2022-03-22] MEDS ORDERED: ONDANSETRON 4 MG/2 ML VIAL ONE (11:00)
[2022-03-22] MEDS ORDERED: guaiFENesin 20 MG/ML UDC ONE (11:00)
[2022-03-22] MEDS ORDERED: SEVOFLURANE 250 ML BTL INH ONE (11:00)
[2022-03-22] MEDS ORDERED: NEOSTIGMINE 1:1000 10 MG/10 ML VIAL ONE (12:21)
[2022-03-22] MEDS ORDERED: GLYCOPYRROLATE 0.2 MG/ML VIAL ONE ×3 (12:21)
[2022-03-22] MEDS: HYDROmorphone 1 MG/ML AMP IVP PRN ×5 (12:30→21:30)
[2022-03-22] MEDS ORDERED: HYDROmorphone PFS 2 MG/ML SYR ONE (12:32)
[2022-03-22] MEDS ORDERED: METOCLOPRAMIDE 10 MG/2 ML INJ VIAL IVP PRN (12:33)
[2022-03-22] MEDS ORDERED: LABETALOL 20 MG/4 ML VIAL IVP PRN (12:33)
[2022-03-22] MEDS ORDERED: hydrALAZINE 20 MG/ML VIAL IVP PRN (12:34)
[2022-03-22] MEDS: NACL 0.9% 1,000 ML IV SCH ×2 (12:35→20:55)
[2022-03-22] MEDS ORDERED: NACL 0.9% 1,000 ML IV SCH (12:35)
[2022-03-22] MEDS ORDERED: BLOOD GLUCOSE MONITORING 1 DEV DEV FS ONE (12:35)
--- NOTE | 2022-03-22 13:00 | NUR ---
PT RETURNED FROM SURGERY, AWAKE AND SEDATED. PER OR NURSE, PT RECEIVED 0.5MG IV DILAUDID. PT IN STABLE CONDITION, DRESSING CLEAN DRY AND INTACT.
[2022-03-22] MEDS ORDERED: METOCLOPRAMIDE 10 MG/2 ML INJ VIAL ONE (13:01)
[2022-03-22] MEDS ORDERED: BLOOD GLUCOSE MONITORING 1 DEV DEV FS SCH (13:14)
[2022-03-22] MEDS ORDERED: MAG SULF 2000 MG/WATER PREMIX 50 ML IV SCH (13:14)
[2022-03-22] MEDS ORDERED: POTASSIUM CHLORIDE 10 MEQ TABER PO SCH (13:16)
--- NOTE | 2022-03-22 14:00 | NUR ---
MEDICATED PT WITH PRN NORCO FOR PAIN.
[2022-03-22 16:00] VITALS: BP 169/100
[2022-03-22] MEDS: INSULIN LANTUS 100 UNITS/ML 10 ML VIAL SUBQ SCH (17:48)
[2022-03-22] MEDS: MORPHINE SULFATE 4 MG/ML SYR IVP PRN ×2 (17:50→22:44)
--- NOTE | 2022-03-22 17:50 | NUR ---
MEDICATED PT WITH PRN HYDRALAZINE FOR SBP OVER 170, AND MORPHINE FOR PAIN 9/10 ON RIGHT LEG.
--- NOTE | 2022-03-22 19:30 | NUR ---
ENDORSED PT TO NIGHTSHIFT NURSE GARY FOR CONTINUITY OF CARE. PT IN STABLE CONDITION.
--- NOTE | 2022-03-22 19:31 | NUR ---
RECEIVED PT FROM MORNING SHIFT NURSE. PT IS AOX4, ABLE TO VERBALIZE NEEDS AND ABLE TO FOLLOW COMMANDS. PT IS ON CCHO DIET, ON ROOM AIR AND HAS IV ON RIGHT WRIST GAUGE 22 AND RIGHT UPPER BICEPS GAUGE 20. PT HAS LEFT BKA AND UNDERGONE RIGHT BKA THIS MORNING. ALL SAFETY MEASURES IMPLEMENTED. CALL LIGHT WITHIN REACH, BED IN LOW POSITION AND BED WHEELS LOCK.
--- NOTE | 2022-03-22 21:40 | NUR ---
SCHEDULED MEDICATION WAS GIVEN TO PT PER MD ORDER. PT BLOOD GLUCOSE IS 219, HUMALOG INSULIN 4 UNITS WAS GIVEN AND PT COMPLAIN FOR RIGHT LEG PAIN. PRN PAIN MEDICATION WAS GIVEN. PT TOLERATE IT WELL. CALL LIGHT WITHIN REACH. ALL SAFETY MEASURES IMPLEMENTED.
--- NOTE | 2022-03-22 22:44 | NUR ---
PT COMPLAIN OF RIGHT LEG PAIN. PAIN SCALE OF 8. PRN PAIN MEDICATION WAS GIVEN. PT TOLERATE IT WELL. ALL SAFETY MEASURES IMPLEMENTED.
[2022-03-23] VITALS: BP 109/61
[2022-03-23] MEDS ORDERED: AMPICILLIN/SULBACTAM 3 GM VIAL ONE ×2 (00:13→05:03)
[2022-03-23] MEDS ORDERED: AMPICILLIN 1,000 MG VIAL ONE ×2 (00:33→05:33)
[2022-03-23] MEDS: AMPICILLIN 2,000 MG in NACL 0.9% 100 ML IV SCH ×4 (00:40→17:28)
--- NOTE | 2022-03-23 00:40 | NUR ---
SCHEDULED MEDICATION WAS GIVEN TO PT PER MD ORDER. PT TOLERATE IT WELL. CALL LIGHT WITHIN REACH. ALL SAFETY MEASURES IMPLEMENTED.
[2022-03-23] MEDS: LORazepam 1 MG TAB PO PRN (04:09)
[2022-03-23] MEDS: NACL 0.9% 1,000 ML IV SCH ×2 (04:10→05:15)
[2022-03-23 05:28] LABS: ANION GAP 6.6 (8-16); CARBON DIOXIDE 31.2 mmol/L (21-32); CREATININE 0.9 mg/dL (0.6-1.3); POTASSIUM 4.8 mmol/L (3.5-5.1)
--- NOTE | 2022-03-23 05:52 | NUR ---
SCHEDULED MEDICATION WAS GIVEN TO PT PER MD ORDER. PT TOLERATE IT WELL. CALL LIGHT WITHIN REACH. ALL SAFETY MEASURES IMPLEMENTED.
[2022-03-23] MEDS: BLOOD GLUCOSE MONITORING 1 DEV DEV FS SCH ×3 (06:32→16:14)
[2022-03-23] MEDS: INSULIN LISPRO SLIDING SCALE 100 UNITS/ML VIAL SUBQ PRN ×2 (06:36→12:48)
--- NOTE | 2022-03-23 07:40 | NUR ---
PT IS STABLE. ENDORSED PT TO MORNING SHIFT NURSE FOR CONTINUITY OF CARE.
--- NOTE | 2022-03-23 07:44 | NUR ---
GOT REPORT FROM THE NIGHT NURSE, PT FAST ASLEEP, BREATHING EASY IN ROOM AIR.[id number]
[2022-03-23 08:00] VITALS: BP 158/96
[2022-03-23] MEDS: DOCUSATE SODIUM 100 MG GELCAP PO SCH (09:00)
[2022-03-23] MEDS: amLODIPine 5 MG TAB PO SCH (09:03)
[2022-03-23] MEDS: GABAPENTIN 100 MG CAP PO SCH ×2 (12:50→17:08)
--- NOTE | 2022-03-23 16:47 | NUR ---
P.T. NOTES P.T. EVAL COMPLETED; REFER TO EVAL FOR DETAILS.
[2022-03-23] MEDS: INSULIN LANTUS 100 UNITS/ML 10 ML VIAL SUBQ SCH (17:08)
[2022-03-23] MEDS ORDERED: GLUC-805 FS (17:42)
[2022-03-23] MEDS ORDERED: LANTUS SUBQ (17:42)
[2022-03-23] MEDS ORDERED: DOCU-299 PO (17:42)
[2022-03-23] MEDS ORDERED: GABA-636 PO (17:42)
[2022-03-23] MEDS ORDERED: AMLO-3 PO (17:42)
[2022-03-23 18:09] VITALS: BP 158/98
--- NOTE | 2022-03-23 18:24 | NUR ---
PT DISCHARGED HOME, DISCHARGE INSTRUCTION IS GIVEN, PT BROTHER AT BED SIDE, THE R FOOT DRESSING CHANGED AND IT IS CLEAN THERE IS NO BLEEDING , THE STAPLE IN PLACE.[id number]
--- NOTE | 2022-03-23 19:13 | NUR ---
PT LEFT WITH THE BROTHER IV AND ID BAND REMOVED ,DISCHARGE PAPERS GIVEN.[id number]
== END 2022-03-23 19:10 | disposition home or self-care (01) | DRG 710 ==
LOC: MED 11:26 → EDBEDREQTM 14:43 → MTU 17:59
PROVIDERS: ADMIT Internal Medicine; ATTEND Internal Medicine
PROC: B42F1ZZ Computerized Tomography (CT Scan) of Right Lower Extremity Arteries using Low Osmolar Contrast (ICD-10-PCS; 2022-03-22)
PROC: 0Y6H0Z1 Detachment at Right Lower Leg, High, Open Approach (ICD-10-PCS; principal; 2022-03-22 12:00)
DX: A41.9 Sepsis, unspecified organism (principal); E43 Unspecified severe protein-calorie malnutrition; E11.52 Type 2 diabetes mellitus with diabetic peripheral angiopathy with gangrene; N17.9 Acute kidney failure, unspecified; E87.1 Hypo-osmolality and hyponatremia; D63.8 Anemia in other chronic diseases classified elsewhere; L97.519 Non-pressure chronic ulcer of other part of right foot with unspecified severity; E11.621 Type 2 diabetes mellitus with foot ulcer; E87.5 Hyperkalemia; E83.42 Hypomagnesemia; E11.65 Type 2 diabetes mellitus with hyperglycemia; M86.8X7 Other osteomyelitis, ankle and foot; E11.69 Type 2 diabetes mellitus with other specified complication; M21.961 Unspecified acquired deformity of right lower leg; Z20.822 Contact with and (suspected) exposure to COVID-19; Z91.14 Patient's other noncompliance with medication regimen; Z68.1 Body mass index [BMI] 19.9 or less, adult
CPT/HCPCS: 36415; 71045; 73630; 76770; 80048; 80053; 80202; 81001; 82550; 82553; 82803; 82948; 83036; 83540; 83605; 83735; 84100; 84484; 85025; 85610; 85730; 86886; 86900; 86901; 87040; 87070; 87075; 87081; 87086; 87186; 87205; 88307; 88311; 93005; 96361; 96365; 96367; 96372; 96375; 97112; 97163-GP; 99291; J0290; J0295; J0360; J0610; J1170; J1644; J1815; J1940; J2270; J2370; J2405; J2543; J2704; J2710; J2765; J3010; J3370; J3475; J3480; J3490; J7030; J7060; Q0092; Q9967